=== PATIENT | female | born 1980 | race African-American/Black ===

== ENCOUNTER 2023-10-13 18:03 | Emergency (ER) | payer OTHER ==
[2023-10-13] MEDS ORDERED: ACETAMINOPHEN 500 MG TAB ONE (19:11)
[2023-10-13] MEDS ORDERED: NA CHLORIDE 0.9% 1,000 ML ONE (19:11)
[2023-10-13] MEDS ORDERED: LABETALOL 20 MG/4ML SYRINGE IV ONE (19:12)
[2023-10-13 19:48] LABS: Absolute Eosinophils 0.3 K/uL (0-0.5); Absolute Lymphocytes (CBC) 1.9 K/uL (0.7-4.9); Absolute Monocytes 0.6 K/uL (0.1-1.3); Absolute Neutrophil 6.9 K/uL (1.8-8.0); Basophils % 0.5 % (0-1.3); Eosinophils % 3.3 % (0-4.4); Hematocrit 37.1 % (36.0-45.0); Hemoglobin 12.1 g/dL (12.0-15.0); Lymphocytes % 19.2 % (15.3-44.8); MCH 28.4 pg (27.0-35.0); MCHC 32.5 g/dL (32.0-36.0); MCV 87.5 fL (80-100); MPV 8.8 fL (7.6-11.3); Platelets 287 thou/uL (152-406); RBC Red Blood Cell Count 4.24 M/uL (3.86-4.86); Red Cell Distribution Width 14.8 % (12.1-15.2)
--- NOTE | 2023-10-13 19:58 | RAD REPORT ---
EXAM DESCRIPTION: CT - Head Brain Wo Cont - 10/13/2023 6:51 pm CLINICAL HISTORY: HEADACHE COMPARISON: No comparisons TECHNIQUE: Noncontrast head CT images were obtained without IV contrast. Multiplanar reformats were generated and reviewed. All CT scans are performed using dose optimization technique as appropriate and may include automated exposure control or mA/KV adjustment according to patient size. FINDINGS: No intracranial hemorrhage, mass, or edema. Midline structures are unremarkable. Normal ventricular caliber for age. Miranda-white matter differentiation is preserved, without evidence of acute infarct. No abnormal extra- axial fluid collections. Mastoid air cells and visualized portions of the paranasal sinuses are clear. No acute bony findings. IMPRESSION: No evidence of an acute intracranial process.
[2023-10-13 19:59] LABS: PT Prothrombin Time 10.7 SECONDS (9.4-12.5); Protime INR 0.95
[2023-10-13 20:25] LABS: ALT/SGPT 28 U/L (13-56); AST/SGOT 19 U/L (15-37); Albumin 3.2 g/dL (3.4-5.0); Albumin/Globulin Ratio 0.7 (1.1-1.8); Alkaline Phosphatase 56 U/L (45-117); Anion Gap 7.6 mEq/L (5.0-15.0); BUN Blood Urea Nitrogen 17 mg/dL (7-18); Bicarbonate 29 mEq/L (21-32); Bilirubin Direct < 0.2 mg/dL (0-0.2); Bilirubin Total 0.2 mg/dL (0.2-1.0); Globulin 4.3 g/dL (2.3-3.5); Glomerular Filtration Rate 38 ml/min (=/>90); Glucose Level 100 mg/dL (74-106); Magnesium 2.3 mg/dL (1.6-2.4); Potassium 3.6 mEq/L (3.5-5.1); Protein, Total 7.5 g/dL (6.4-8.2); Sodium Level 135 mEq/L (136-145); Troponin High Sensitivity 4.2 pg/mL (<58.9)
[2023-10-13] MEDS ORDERED: AMLODIPINE 10 MG TAB ONE (20:58)
--- NOTE | 2023-10-13 22:25 | ER ---
Nurse's Notes [facility] Name: Mariola Flaherty Age: 43 yrs Sex: Female : 1980 Arrival Date: 10/13/2023 Time: 18:03 Bed 14 Private MD: Diagnosis: Hypertensive heart disease without heart failure;Nausea with vomiting, unspecified;Headache Presentation: 10/12 18:10 Chief complaint: Patient states: generalized abdominal pain with n/v and [place] that me1 started today. Denies diarrhea. Coronavirus screen: Vaccine status: Patient reports being unvaccinated. Ebola Screen: No symptoms or risks identified at this time. Initial Sepsis Screen: Does the patient meet any 2 criteria? No. Patient's initial sepsis screen is negative. Risk Assessment: Do you want to hurt yourself or someone else? Patient reports no desire to harm self or others. Onset of symptoms was October 13, 2023. 18:10 Method Of Arrival: Ambulatory wy1 18:10 Acuity: CARMEN 3 me1 19:00 Initial Sepsis Screen: Does the patient have a suspected source of infection? No. vc1 Patient's initial sepsis screen is negative. 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 - Infectious Disease History:: Denies. - Social history:: Smoking status: Patient denies any tobacco usage or history of. Screenin:00 [facility] ED Fall Risk Assessment (Adult) History of falling in the last 3 months, vc1 including since admission No falls in past 3 months (0 pts) Confusion or Disorientation No (0 pts) Intoxicated or Sedated No (0 pts) Impaired Gait No (0 pts) Mobility Assist Device Used No (0 pt) Altered Elimination Yes (1 pt) Score/Fall Risk Level 0 - 2 = Low Risk Oriented to surroundings, Maintained a safe environment, Educated pt \T\ family on fall prevention, incl call for assistance when getting out of bed. Abuse screen: Denies threats or abuse. Nutritional screening: No deficits noted. Tuberculosis screening: No symptoms or risk factors identified. Vital Signs: 18:10 BP 210 / 120; Pulse 91; Resp 17; Temp 98.3; Pulse Ox 100% on R/A; Weight 85.73 kg; me1 Height 5 ft. 4 in. ; Pain 10/10; 19:47 BP 185 / 111; Pulse 82; Resp 14; Pulse Ox 100% ; jm12 22:49 BP 127 / 82; Pulse 74; Resp 14; Temp 98.2; Pulse Ox 100% ; jm12 18:10 Body Mass Index 32.44 (85.73 kg, 162.56 cm) me1 18:10 Pain Scale: Adult wy1 ED Course: 18:05 Patient arrived in ED. im 18:12 Triage completed. me1 18:13 Arm band placed on left wrist. me1 18:17 Piter Domingo, RN is Primary Nurse. bp 18:20 Eric Huizar PA is PHCP. cp 18:20 Eric Roca MD is Attending Physician. cp 18:53 CT Head Brain wo Cont In Process Unspecified. EDMS 19:00 Patient has correct armband on for positive identification. Bed in low position. Call vc1 light in reach. patient monitor on. Pulse ox on. NIBP on. 19:15 Inserted saline lock: 20 gauge in right antecubital area, using aseptic technique. jm12 Blood collected. Flushed with 10 mL NS. 19:49 Basic Metabolic Panel Sent. jm12 19:49 CBC with Diff Sent. jm12 19:49 LFT's Sent. jm12 19:49 Magnesium Sent. jm12 19:49 PT-INR Sent. jm12 19:49 Troponin HS Sent. jm12 22:50 IV discontinued, intact, bleeding controlled, No redness/swelling at site. Pressure jm12 dressing applied. Administered Medications: 19:48 Drug: NS 0.9% IV 1000 ml IV at 1 bolus Per protocol; 1000 mL bolus Route: IV; Rate: 1 jm12 bolus; Site: right antecubital; 19:48 Not Given (Patient Refused): [id number] mg PO once jm12 19:48 Drug: Labetalol IV 20 mg IV at calculated rate once over 2 mins Route: IV; Rate: jm12 calculated rate; Infused Over: 2 mins; Site: right antecubital; 21:08 Drug: amLODIPine PO 10 mg PO once Route: PO; jm12 21:35 CANCELLED (Physician Discretion): [id number] mg IVP once cp 22:22 CANCELLED (Physician Discretion): clonidine0.2 mg PO once; systolic pressure greater cp than 180 Outcome: 22:24 Discharge ordered by MD. cp 22:50 Discharged to home ambulatory, [facility] 22:50 Condition: stable 22:50 Discharge instructions given to patient, Instructed on discharge instructions, follow up and referral plans. medication usage, Demonstrated understanding of instructions, follow-up care, medications, 22:50 Patient left the ED. harvinder Signatures: Dispatcher [employer] EDMS Eric Huizar PA PA Piter Hunter, RN RN bp Antonia Brice RN RN vc1 Paola Clarke Michelle, RN RN wy1 Sera Hayes RN RN jm12
--- NOTE | 2023-10-13 22:25 | EDPHYS ---
Physician Documentation [facility] Name: Mariola Flaherty Age: 43 yrs Sex: Female : 1980 Arrival Date: 10/13/2023 Time: 18:03 Bed 14 Private MD: ED Physician Eric Roca HPI: 10/12 18:40 This 43 yrs old Black Female presents to ER via Ambulatory with complaints of Headache, cp Nausea, Vomiting, Abdominal Pain. 18:40 The patient complains of pain to the top of head and forehead. The patient describes cp the headache as aching, constant. Onset: The symptoms/episode began/occurred today. Associated signs and symptoms: Pertinent positives: nausea, Pertinent negatives: altered mental status, fever, neck stiffness, vision changes, weakness, active vomiting. Severity of symptoms: in the emergency department the pain is unchanged, despite home interventions. 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 - Infectious Disease History:: Denies. - Social history:: Smoking status: Patient denies any tobacco usage or history of. ROS: 18:45 Constitutional: Negative for body aches, chills, fever, poor PO intake, cp 18:45 Eyes: Negative for injury, pain, redness, and discharge, cp 18:45 ENT: Negative for drainage from ear(s), ear pain, sore throat, difficulty swallowing, difficulty handling secretions, 18:45 Cardiovascular: Negative for chest pain, edema, palpitations, 18:45 Respiratory: Negative for cough, shortness of breath, wheezing, 18:45 Abdomen/GI: Positive for abdominal pain, nausea, Negative for constipation, anorexia, active vomiting, 18:45 : Negative for urinary symptoms, 18:45 Neuro: Positive for headache, Negative for altered mental status, numbness, syncope, weakness, 18:45 All other systems are negative, Exam: 18:50 Constitutional: The patient appears in no acute distress, alert, awake, cp non-diaphoretic, non-toxic, well developed, well nourished, uncomfortable, 18:50 Head/Face: Normocephalic, atraumatic. cp 18:50 Eyes: Periorbital structures: appear normal, Pupils: equal, round, and reactive to light and accomodation, Extraocular movements: intact throughout, Conjunctiva: normal, no exudate, no injection, Sclera: no appreciated abnormality, Lids and lashes: appear normal, bilaterally, 18:50 ENT: External ear(s): are unremarkable, Nose: is normal, Mouth: Lips: moist, Oral mucosa: pink and intact, moist, Posterior pharynx: is normal, airway is patent, no erythema, no exudate, 18:50 Neck: ROM/movement: is normal, is supple, without pain, no range of motions limitations, 18:50 Chest/axilla: Inspection: normal, 18:50 Cardiovascular: Rate: normal, Rhythm: regular, Edema: is not appreciated, JVD: is not appreciated, 18:50 Respiratory: the patient does not display signs of respiratory distress, Respirations: normal, no use of accessory muscles, no retractions, labored breathing, is not present, Breath sounds: are clear throughout, no decreased breath sounds, no stridor, no wheezing, 18:50 Abdomen/GI: Inspection: abdomen appears normal, Palpation: abdomen is soft and non-tender, in all quadrants, 18:50 Back: pain, is absent, ROM is normal, 18:50 Neuro: Orientation: to person, place \T\ time. Mentation: is normal, Cerebellar function: is grossly normal, Motor: moves all fours, strength is normal, Sensation: is normal, 21:12 ECG was reviewed by the Attending Physician. cp Vital Signs: 18:10 BP 210 / 120; Pulse 91; Resp 17; Temp 98.3; Pulse Ox 100% on R/A; Weight 85.73 kg; me1 Height 5 ft. 4 in. ; Pain 10/10; 19:47 BP 185 / 111; Pulse 82; Resp 14; Pulse Ox 100% ; jm12 22:49 BP 127 / 82; Pulse 74; Resp 14; Temp 98.2; Pulse Ox 100% ; jm12 18:10 Body Mass Index 32.44 (85.73 kg, 162.56 cm) ct1 18:10 Pain Scale: Adult me1 MDM: 18:20 Patient medically screened. cp 22:24 Data reviewed: vital signs, nurses notes, lab test result(s), EKG, radiologic studies, cp CT scan, plain films, and as a result, I will discharge patient. 22:24 Differential diagnosis: intracerebral hemorrhage, migraine, subarachnoid bleed, cp subdural hematoma. I considered the following discharge prescriptions or medication management in the emergency department Medications were administered in the Emergency Department. See MAR. Independent interpretation of the following test(s) in the Emergency Department EKG: See my EKG interpretation above. Care significantly affected by the following chronic conditions: Hypertension. Counseling: I had a detailed discussion with the patient and/or guardian regarding the historical points, exam findings, and any diagnostic results supporting the discharge/admit diagnosis, lab results, radiology results, the need for outpatient follow up, a family practitioner, to return to the emergency department if symptoms worsen or persist or if there are any questions or concerns that arise at home. Response to treatment: the patient's symptoms have markedly improved after treatment, and as a result, I will discharge patient. 10/12 18:36 Order name: Basic Metabolic Panel; Complete Time: 20:29 10/12 20:29 Interpretation: Normal except: NA 135; CRE 1.69; GFR 38. 10/12 18:36 Order name: CBC with Diff; Complete Time: 20:13 10/12 18:36 Order name: LFT's; Complete Time: 20:29 10/12 21:34 Interpretation: Normal except: IBILI, CALC 0.0; ALB 3.2; GLOB 4.3; A/G 0.7. 10/12 18:36 Order name: Magnesium; Complete Time: 20:29 10/12 18:36 Order name: PT-INR; Complete Time: 20:13 10/12 18:36 Order name: Troponin HS; Complete Time: 20:29 10/12 18:36 Order name: CT Head Brain wo Cont; Complete Time: 20:13 10/12 18:36 Order name: Cardiac monitoring; Complete Time: 19:49 10/12 18:36 Order name: EKG - Nurse/Tech; Complete Time: 21:09 10/12 18:36 Order name: IV Saline Lock; Complete Time: 19:49 10/12 18:36 Order name: Labs collected and sent; Complete Time: 19:49 10/12 18:36 Order name: O2 Per Protocol; Complete Time: 19:49 cp 10/12 18:36 Order name: O2 Sat Monitoring; Complete Time: 19:49 cp 10/12 18:36 Order name: Accucheck Blood Glucose; Complete Time: 21:11 cp EC:12 Rate is 90 beats/min. Rhythm is regular. OR interval is normal. QRS interval is normal. cp QT interval is normal. T waves are Inverted in leads aVR, V2. Interpreted by me. Reviewed by me. Administered Medications: 19:48 Drug: NS 0.9% IV 1000 ml IV at 1 bolus Per protocol; 1000 mL bolus Route: IV; Rate: 1 jm12 bolus; Site: right antecubital; 19:48 Not Given (Patient Refused): [id number] mg PO once jm12 19:48 Drug: Labetalol IV 20 mg IV at calculated rate once over 2 mins Route: IV; Rate: jm12 calculated rate; Infused Over: 2 mins; Site: right antecubital; 21:08 Drug: amLODIPine PO 10 mg PO once Route: PO; jm12 21:35 CANCELLED (Physician Discretion): [id number] mg IVP once cp 22:22 CANCELLED (Physician Discretion): clonidine0.2 mg PO once; systolic pressure greater cp than 180 Disposition Summary: 10/13/23 22:24 Discharge Ordered Notes: Location: Home cp Problem: chronic cp Symptoms: have improved cp Condition: Stable cp Diagnosis - Hypertensive heart disease without heart failure cp - Nausea with vomiting, unspecified cp - Headache cp Followup: cp - With: Private Physician - When: 1 week - Reason: Recheck today's complaints Discharge Instructions: - Discharge Summary Sheet cp - General Headache Without Cause cp - Hypertension, Adult cp - Nausea and Vomiting, Adult cp - Aspirin and Your Heart cp - Form - Blood Pressure Record Sheet cp - How to Take Your Blood Pressure cp Forms: - Medication Reconciliation Form cp - Antibiotic Education cp - Prescription Opioid Use cp - Patient Portal Instructions cp - Leadership Thank You Letter cp Prescriptions: - amlodipine 5 mg Oral tablet - take 1 tablet ORAL route daily; 30 tablet; Refills: 0, Product Selection cp Permitted - Zofran 4 mg Oral Tablet - take 1 tablet ORAL route every 12 hours As needed; 20 tablet; Refills: 0, cp Product Selection Permitted Addendum: 10/17/2023 05:10 Co-signature as Attending Physician, Eric Roca MD I agree with the assessment and c carias plan of care. Signatures: Dispatcher [employer] Eric Mack MD MD cha Page, Corey, RANDALL PEREIRA cp Donna Mei, RN RN me1 Sear Hayes RN RN jm12 Corrections: (The following items were deleted from the chart) 10/12 21:35 21:34 hydrALAZINE IVP 10 mg IVP once ordered. cp cp 22:22 21:35 cloNIDine PO 0.2 mg PO once; systolic pressure greater than 180 ordered. cp cp
--- NOTE | 2023-10-15 13:21 | EKG ---
Test Date: 2023-10-13 Test Time: 21:05:30 Knifeman: IGNACIO MEASUREMENT RESULTS: Intervals: Rate: 90 IA: 142 QRSD: 86 QT: 384 QTc: 469 [place]: P: 65 IA: 142 QRS: 21 T: 67 INTERPRETIVE STATEMENTS: Normal sinus rhythm Possible Left atrial enlargement Low voltage QRS Cannot rule out Anterior infarct, age undetermined Abnormal ECG No previous ECG available for comparison Electronically Signed On 10-15-23 13:15:27 CDT by Rodrigo Gonzalez
[2023-10-15 18:02] VITALS: BP 127/82; TEMP 98.2; O2SAT 100
== END 2023-10-13 22:50 | disposition home or self-care (01) ==
LOC: ER 18:03
DX: R51.9 Headache, unspecified (principal); R11.2 Nausea with vomiting, unspecified; I11.9 Hypertensive heart disease without heart failure; E11.9 Type 2 diabetes mellitus without complications; E78.00 Pure hypercholesterolemia, unspecified
CPT/HCPCS: 93005; 85025; 80048; 36415; 83735; 85610; 80076; 84484; 70450; 96374; 99285; J7030